=== PATIENT | male | born 2000 | race African-American/Black ===

== ENCOUNTER 2018-03-16 16:34 | Emergency (ER) | payer OTHER ==
[~2018-03-16] VITALS: Ht 185.4 cm; Wt 79.5 kg
[2018-03-16] MEDS ORDERED: TOBREX3.5 GM BOTH EYES (18:53)
[2018-03-16] MEDS ORDERED: VISINE A.C300 DROP/1 BOTH EYES (18:53)
[2018-03-16 19:02] VITALS: BP 143/80
== END 2018-03-16 19:12 | disposition home or self-care (01) ==
LOC: EME 16:34
DX: H10.9 Unspecified conjunctivitis (principal); F17.200 Nicotine dependence, unspecified, uncomplicated
CPT/HCPCS: 99281; 99283